=== PATIENT | male | born 2000 | race Caucasian/White ===

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

== ENCOUNTER → 2023-07-17 | Outpatient (CLI) | payer BC, SELFPAY ==
--- NOTE | 2023-07-17 17:25 | RAD_ITS ---
EXAM: XR LEFT ELBOW COMPLETE, 3 OR MORE VIEWS CLINICAL INDICATION: pain TECHNIQUE: Frontal, lateral and oblique views of the left elbow. COMPARISON: No relevant prior studies available. FINDINGS: BONES/JOINTS: No significant abnormality. There is no displacement of the anterior or posterior fat pads. No acute fracture. No subluxation. Normal alignment. Preservation of the joint space. No destructive or sclerotic lesions. SOFT TISSUES: No significant abnormality. No soft tissue swelling or gas. No radiopaque foreign body. RAD/Elbow min 3 Views IMPRESSION: Negative left elbow. Electronically Signed: Jason Berry DO at 23:38 EST ,
== END | disposition home or self-care (01) ==
PROVIDERS: PCP Family Medicine; Referring Provider Family Medicine; Visit Provider Family Medicine
DX: M25.522 Pain in left elbow (principal)
CPT/HCPCS: 73080